=== PATIENT | male | born 1995 | race Caucasian/White ===

== ENCOUNTER 2017-02-21 20:08 | Emergency (ER) | payer BC, OTHER ==
[~2017-02-21 20:08] MED LIST: Lidocaine 1% 20 ML MDV INFILT ONE
--- NOTE | 2017-02-21 20:11 | EDM.PDOC ---
ED HPI GENERAL MEDICAL PROBLEM - General Chief Complaint: Laceration Stated Complaint: SLICED L HAND W/KNIFE Time Seen by Provider: 02/21/17 20:11 Source of Information: Reports: Patient History Limitations: Reports: No Limitations - History of Present Illness INITIAL COMMENTS - FREE TEXT/NARRATIVE: 21 yo M who presents to the ER with laceration to the Left Palm which he sustained at work with a Knife. Presented to the ER for further evaluation. Reports that his tetanus immunization is up to date Duration: Hour(s): (occurred in the last hour) - Related Data Allergies Allergy/AdvReac Type Severity Reaction Status Date / Time No Known Allergies Allergy Verified 07/09/13 18:18 Home Meds: Home Meds ARIPiprazole [Abilify] 1 tab PO DAILY 07/09/13 [History] Past Medical History - Past Health History Medical/Surgical History: Denies Medical/Surgical History Social & Family History - Alcohol Use Days Per Week of Alcohol Use: 0 - Recreational Drug Use Recreational Drug Use: No ED ROS GENERAL - Review of Systems Review Of Systems: See Below Constitutional: Reports: No Symptoms HEENT: Reports: No Symptoms Respiratory: Reports: No Symptoms Cardiovascular: Reports: No Symptoms GI/Abdominal: Reports: No Symptoms : Reports: No Symptoms Musculoskeletal: Reports: No Symptoms Skin: Reports: No Symptoms Neurological: Reports: No Symptoms Psychiatric: Reports: No Symptoms Hematologic/Lymphatic: Reports: No Symptoms Immunologic: Reports: No Symptoms ED EXAM, GENERAL - Physical Exam Exam: See Below Exam Limited By: No Limitations General Appearance: Alert, WD/WN Ears: Normal External Exam, Normal Canal, Hearing Grossly Normal, Normal TMs Nose: Normal Inspection, Normal Mucosa, No Blood Throat/Mouth: Normal Inspection, Normal Lips, Normal Oropharynx Head: Atraumatic, Normocephalic Neck: Normal Inspection, Supple, Non-Tender Respiratory/Chest: No Respiratory Distress, Lungs Clear, Normal Breath Sounds Cardiovascular: Normal Peripheral Pulses, Regular Rate, Rhythm, No Edema, No JVD , No Murmur GI/Abdominal: Normal Bowel Sounds, Soft, Non-Tender, No Organomegaly, No Distention (Male) Exam: Deferred Rectal (Males) Exam: Deferred Back Exam: Normal Inspection, Full Range of Motion Extremities: Normal Inspection, Normal Range of Motion, Non-Tender, No Pedal Edema, Other (Left Hand -- 4 cm Laceration Left Hand) Neurological: Alert, Oriented, CN II-XII Intact, Normal Cognition Psychiatric: Normal Affect, Normal Mood Skin Exam: Warm, Intact ED GENERAL MEDICAL PROCEDURES - Laceration/Wound Repair Left Hand Lac/wound length in cm: 4 Appearance: Mildly Contaminated Distal NVT: Neuro & Vascular Intact Anesthetic Type: Local Local Anesthesia - Lidocaine (Xylocaine): 1% Plain Local Anesthetic Volume: 3cc Skin Prep: Chlorhexidine (Hibiciens), Saline Exploration/Debridement/Repair: Wound Explored Closed with: Sutures Suture Size: 3-0 Suture Type: Other (Ethilon) Drain Placement: No Sterile Dressing Applied: Nurse Tetanus Status Addressed: Yes Complications: No Departure - Departure Time of Disposition: 21:09 Disposition: Home, Self-Care 01 Condition: Good Clinical Impression: Laceration of hand Qualifiers: Encounter type: initial encounter Foreign body presence: without foreign body Laterality: left Qualified Code(s): S61.412A - Laceration without foreign body of left hand, initial encounter - Discharge Information
[2017-02-21 23:11] VITALS: BP 129/74
== END 2017-02-21 21:30 | disposition home or self-care (01) ==
LOC: FB.ED 20:08
DX: S61.412A Laceration without foreign body of left hand, initial encounter (principal); Z79.899 Other long term (current) drug therapy; W26.0XXA Contact with knife, initial encounter
CPT/HCPCS: 12002; 99282

== ENCOUNTER 2017-08-07 08:40 | Emergency (ER) | payer BC ==
--- NOTE | 2017-08-07 09:10 | EDM.PDOC ---
ED HPI GENERAL MEDICAL PROBLEM - General Chief Complaint: ENT Problem Stated Complaint: SORE THROAT Time Seen by Provider: 08/07/17 09:00 Source of Information: Reports: Patient History Limitations: Reports: No Limitations - History of Present Illness INITIAL COMMENTS - FREE TEXT/NARRATIVE: Coy comes to [facility] ED with a 4 day hx of escalating sore throat, hoarseness, low grade fever, headache and some malaise. His appetite is diminished, wt loss of about 4#, without cough, Gi upset, or rash. He took some NyQuil this am for relief. - Related Data Allergies Allergy/AdvReac Type Severity Reaction Status Date / Time No Known Allergies Allergy Verified 08/07/17 09:12 Home Meds: Home Meds Penicillin V Potassium 500 mg PO Q6HR #20 tab 08/07/17 [Rx] Past Medical History - Past Health History Medical/Surgical History: Denies Medical/Surgical History Social & Family History - Family History Family Medical History: Noncontributory - Tobacco Use Smoking Status *Q: Never Smoker Second Hand Smoke Exposure: No - Caffeine Use Caffeine Use: Reports: None - Alcohol Use Days Per Week of Alcohol Use: 0 - Recreational Drug Use Recreational Drug Use: No ED ROS ENT - Review of Systems Review Of Systems: ROS reveals no pertinent complaints other than HPI. ED EXAM, ENT - Physical Exam Exam: See Below Exam Limited By: No Limitations General Appearance: Alert, WD/WN, Mild Distress Eye Exam: Bilateral Eye: EOMI, Normal Inspection, PERRL Ears: Normal External Exam, Normal TMs Nose: Normal Inspection Mouth/Throat: Normal Gums, Normal Lips, Normal Teeth, Tonsillar Erythema, Tonsillar Exudates, Tonsillar Swelling Head: Atraumatic, Normocephalic Neck: Normal Inspection, Supple, Non-Tender, Full Range of Motion, Lymphadenopathy (R), Lymphadenopathy (L) Respiratory/Chest: Lungs Clear, Normal Breath Sounds, Chest Non-Tender Cardiovascular: Regular Rate, Rhythm, No Murmur GI/Abdominal: Normal Bowel Sounds, Soft, Non-Tender, No Organomegaly, No Distention, No Mass (Male) Exam: No Hernia, Deferred Rectal (Males) Exam: Deferred Back: Normal Inspection Extremities: Normal Inspection Neurological: Alert, Oriented, CN II-XII Intact, Normal Cognition, Normal Gait, No Motor/Sensory Deficits Psychiatric: Normal Affect, Normal Mood Skin: Warm, Dry Lymphatic: Adenopathy (tender anterior and posterior adenitis L>R) Course - Vital Signs Text/Narrative:: The RSS and MonoTest were both negative. A Strept culture was set up. I dispensed Pen VK 500 mg qid x 5 days pending results. Last Recorded V/S: Last Vital Signs Temp 37.7 C 08/07/17 09:14 Pulse 85 08/07/17 09:14 Resp 18 08/07/17 09:14 BP 119/67 08/07/17 09:14 Pulse Ox 99 08/07/17 09:14 - Orders/Labs/Meds Orders: Active Orders 24 hr Category Date Time Status CULTURE STREP A CONFIRMATION [RM] Stat Lab 08/07/17 08:53 Results STREP SCRN A RAPID W CULT CONF [RM] Stat Lab 08/07/17 08:53 Received Labs: Laboratory Tests 08/07/17 Range/Units 09:15 Monoscreen Negative (NEGATIVE) Departure - Departure Time of Disposition: 09:34 Disposition: Home, Self-Care 01 Condition: Fair Clinical Impression: Acute tonsillitis - Discharge Information Prescriptions: Penicillin V Potassium 500 mg PO Q6HR #20 tab Referrals: PCP,None [Primary Care Provider] - Forms: ED Department Discharge Additional Instructions: Increase your fluid intake and use motrin as needed for pain - Problem List & Annotations (1) Acute tonsillitis SNOMED Code(s): 90962202 Code(s): J03.90 - ACUTE TONSILLITIS, UNSPECIFIED Status: Acute Current Visit: Yes Annotation/Comment:: i dispensed Pen VK 500 mg qid x 5 days pending results of culture, ASA or NSAIDs for pain, hydration. - Problem List Review Problem List Initiated/Reviewed/Updated: Yes - My Orders Last 24 Hours: My Active Orders 08/07/17 08:53 CULTURE STREP A CONFIRMATION [RM] Stat STREP SCRN A RAPID W CULT CONF [RM] Stat - Assessment/Plan Last 24 Hours: My Active Orders 08/07/17 08:53 CULTURE STREP A CONFIRMATION [RM] Stat STREP SCRN A RAPID W CULT CONF [RM] Stat Plan: Follow up with PCP if sxs persist.
[2017-08-07 09:17] VITALS: BP 119/67
== END 2017-08-07 09:35 | disposition home or self-care (01) ==
LOC: FB.ED 08:40
DX: J03.90 Acute tonsillitis, unspecified (principal)
CPT/HCPCS: 36415; 86308; 87081; 87430; 99283

== ENCOUNTER 2024-03-07 15:58 | Emergency (ER) | payer BC ==
[2024-03-07 17:25] VITALS: BP 119/79; PULSE 50
== END 2024-03-07 17:12 | disposition home or self-care (01) ==
LOC: FB.ED 15:58
DX: S61.317A Laceration without foreign body of left little finger with damage to nail, initial encounter (principal); W26.0XXA Contact with knife, initial encounter
CPT/HCPCS: 11760; 99282-25